=== PATIENT | female | born 1985 | race Caucasian/White ===

== ENCOUNTER → 2020-01-29 | Outpatient (CLI) | payer OTHER ==
[~2020-01-29] MED LIST: ALBIPROI INH; AZIT500 PO; CEPH500 PO; CETI10 PO; CLIN300 PO; Crutch1 EACH MISC; DIPATR PO; DOCU100 PO; DOXY100 PO; EPIN.3I IM; ESCI10 PO; ESTR2 PO; HYDACE5 PO; HYDGUAL120 PO; IBUP400 PO; IBUP600 PO; IBUP800; IBUP800 PO; LEVFLO500 PO; MECL25 PO; NAPR500 PO; NAPR550 PO; NORT10 PO; OXYACE5T PO; PRED20 PO; PROC10 PO; PROM25 PO; RANI150 PO; RXCLIN PO; RXDIPATR PO; RXNEOPOLHC AS; RXPROM25 PO; SERT100 PO; SERT25 PO; SERT50 PO; SIME80CH PO; SULTRIDS PO; TRAM50 PO
== END | disposition home or self-care (01) ==
LOC: LAB EV 19:17 → LAB SHORT 19:17
DX: R30.9 Painful micturition, unspecified (principal)
CPT/HCPCS: 87077; 87086; 87186